=== PATIENT | male | born 1950 | race Caucasian/White ===

== ENCOUNTER → 2020-04-06 | Outpatient (CLI) | payer MEDICARE | LOC: M.LAB 08:35 | PROVIDERS: ATTEND Surgery | DX: Z01.812 Encounter for preprocedural laboratory examination (principal); Z20.828 Contact with and (suspected) exposure to other viral communicable diseases; D17.79 Benign lipomatous neoplasm of other sites ==

== ENCOUNTER → 2020-04-13 | Day surgery (SDC) | payer MEDICARE ==
[~2020-04-13] MED LIST: AMLODIPINE BESY10 MG PO; CARVEDILOL6.25 M1 PO; TAMSULOSIN HCL0.4 MG PO; ULTRAM 50MG TAB50 MG PO; VITAMIN D250 MCG PO
--- NOTE | 2020-04-13 12:49 | EKG ---
[place] [address] ELECTROCARDIOGRAM REPORT Name: MISTI ESQUIVEL Camille Room: [facility]#: [id number] Admission: 04/13/20 Attend Phys: Opal Diallo, Discharge: Date of : 54 Date of Service: 04/13/20 1244 Report #: [id number] THIS REPORT FOR: //name// [facility] Test Date: 2020-04-13 Test Time: 12:44:33 Pat Name: MISTI ESQUIVEL Department: Room: Gender: Contracts Paralegal: : 1950 Requested By: Opal Diallo Order Number: [id number] Hernando MD: Juan J Miller Measurements Intervals [place] Rate: 56 P: -15 CO: 142 QRS: -20 QRSD: 90 T: 18 QT: 431 QTc: 416 Interpretive Statements Sinus rhythm Abnormal R-wave progression, early transition No previous ECG available for comparison Electronically Signed On 04-13-2020 12:49:23 CDT by Juan J Miller [email or web address] <ELECTRONICALLY SIGNED> By: Juan J Miller MD, [facility] 04/13/20 1249 1244 43 Juan J Miller MD, FACC /EPI
[2020-04-13 12:56] LABS: HEMATOCRIT 41.8 % (42.0-52.0); MCHC 33.4 g/dL (28.0-37.0); MCV 83.8 fL (80.0-100.0); MPV 8.4 fl. (7.2-11.1); RBC 4.99 mil/uL (4.50-6.00); RDW-CV 14.9 % (10.5-14.5); WBC 6.2 thou/uL (4.0-11.0)
[2020-04-13 13:01] LABS: CALCIUM 8.8 mg/dL (8.5-10.1)
--- NOTE | 2020-04-13 20:04 | OP ---
[address] [address] OPERATIVE REPORT Name: MISTI ESQUIVEL Room: [facility]#: [id number] Admission: 04/13/20 Attend Phys: Opal Diallo DO Discharge: Date of : 54 Report #: [id number] THIS REPORT FOR: //name// cc: Ifeanyi Moya Michael G DO ~ CC: Opal Moya DO DICTATED BY: Leonard Mojica DO DATE OF SERVICE: 04/13/2020 PREOPERATIVE DIAGNOSIS: Lipoma, left shoulder and lower mid back. POSTOPERATIVE DIAGNOSIS: Lipoma, left shoulder and lower mid back. FINDINGS: Left shoulder lipoma size 6.5 x 4.75 x 0.9 cm, incision was 4 cm in length, of dissection was muscle fascia and lower mid back lipoma 1.5 x 2.5 x 0.5 cm in size. Incision length was 3 cm, depth of dissection was muscle fascia. SURGEON: Opal Diallo DO CO-SURGEON: Leonard Mojica, PGY5 CASHIER AND SALESPERSON: MS Nick3. OPERATION PERFORMED: Excision of left shoulder and mid back lipomas. ANESTHESIA: MAC and local, 0.5% Marcaine. ESTIMATED BLOOD LOSS: 3. SPECIMEN: Left shoulder and mid back lipomas. COMPLICATIONS: None. CONDITION: Stable. DISPOSITION: PACU to home. INDICATIONS: The patient is a 70-year-old male who presented with two symptomatic masses on his back. He was interested in excision due to the pain that they were causing. He was informed of the risks and benefits of the mass excision with risks including but not limited to bleeding, infection. He [address] [address] OPERATIVE REPORT Name: MISTI ESQUIVEL Room: [facility]#: [id number] Admission: 04/13/20 Attend Phys: Opal Diallo DO Discharge: Date of : 54 Report #: [id number] understood these risks and decided to proceed with surgery. DESCRIPTION OF PROCEDURE: After informed consent was obtained, the patient was brought to the operating room and placed in the supine position. He was repositioned with the barakat bag into a right lateral recumbent position. All pressure points were padded. Monitored anesthesia care was provided. A timeout was performed. The patient was prepped and draped in usual sterile fashion. A 0.5% Marcaine was injected at the left shoulder mass and the lower mid back mass. The lower mid back mass was excised first. A vertical midline 3 cm incision was made with a #15 blade. Dissection was carried through the deep dermis using cautery. Once the fatty tissue was identified, there was no clearly encapsulated fatty tissue, but there was some distinct grayish fat that was palpably different than the surrounding tissue. This was excised circumferentially using cautery. Once completely detached, it was handed off as specimen measured 1.5 x 2.5 x 0.5 cm. The remainder of the cavity was inspected and hemostatic. There was no palpable additional masses in the cavity. It was closed in layered fashion using 3-0 Vicryl, 4-0 Monocryl. Attention was then turned towards the left shoulder lipoma, which was previously anesthetized with 0.5% Marcaine. A 4 cm incision was made with a #15 blade. Dissection was carried through the deep dermis using cautery. There was a clearly encapsulated lipoma that was encountered. This was circumferentially bluntly dissected free from the surrounding tissue. The stalk was transected using cautery. A small additional finger at the stalk of the lipoma was excised using blunt dissection and cautery. The final specimen size of the shoulder mass was 6.5 x 4.75 x 0.9 cm. Depth of dissection of both were muscle fascia. Cautery was used for hemostasis. This wound was closed in layered fashion using 3-0 Vicryl, 4-0 Monocryl. Both incisions were dressed with Dermabond and an overlying pressure dressing with 4 x 4's, and tape. The patient was emerged from anesthesia. All counts were correct. He was transferred to the PACU in stable condition. <ELECTRONICALLY SIGNED> By: Opal Diallo DO 04/13/202003 1532 1552Chrsimone Diallo DO /nt
--- NOTE | 2020-04-18 10:07 | PATH ---
[address] [address] PATHOLOGY RPT PROCEDURE Name: TU MORENO Room: [facility]#: [id number] Admission: 04/13/20 Date of : 54 Discharge: Report #: [id number] Path Case #: [id number] [facility] Accession Number: [id number] . 01 Material submitted: . PART A: shoulder - LIPOMA LEFT SHOULDER. Modifiers: left PART B: back - LIPOMA MID BACK. Modifiers: mid . 02 Diagnosis: A. Lipoma left shoulder: - Lipoma. . B. Lipoma mid back: - Lipoma. (BLAKE:pit 04/17/2020) QTP 04/17/2020 1704 Local . 02 Electronically signed: . Bairon Mcgee MD, Pathologist NPI- [id number] . 01 Gross description: . A. Received in formalin labeled "Tu Moreno, lipoma left shoulder" is a uriostegui-yellow lobulated soft tissue mass measuring 4.9 x 4.8 x 2.3 cm. The external surface is inked black. The specimen is sectioned to reveal a yellow-uriostegui homogeneous cut surface without hemorrhage or necrosis. Mortgage Broker sections are submitted in cassettes A1-A3. . B. Received in formalin labeled "Tu Moreno, lipoma mid back" is a uriostegui-yellow lobulated soft tissue mass measuring 3.1 x 2.0 x 0.8 cm. The external surface is inked black. The specimen is sectioned to reveal yellow-uriostegui homogeneous cut surface without hemorrhage or necrosis. Mortgage Broker sections are submitted in cassettes B1-B2. ([facility]; 04/15/2020) [facility] 04/15/2020 1127 Local . 02 Pathologist provided ICD-10: D17.79 . 02 CPT . 921546, 465909 Specimen Comment: A courtesy copy of this report has been sent to [phone] Specimen Comment: Report sent to DR BLOOM Performed at: [address] [facility] [id number] MD Edmund Gallo MD Phone: [phone] Performed at: 02 [place] [address] PATHOLOGY RPT PROCEDURE Name: TU MORENO Room: [facility]#: [id number] Admission: 04/13/20 Date of : 54 Discharge: Report #: [id number] Path Case #: [id number] [facility] [address] [place] [id number] MD Bairon Mcgee MD Phone: [phone]
== END | disposition home or self-care (01) ==
LOC: M.SUR 12:11
PROVIDERS: ATTEND Surgery
DX: D17.79 Benign lipomatous neoplasm of other sites (principal); D17.1 Benign lipomatous neoplasm of skin and subcutaneous tissue of trunk; I10 Essential (primary) hypertension; N40.0 Benign prostatic hyperplasia without lower urinary tract symptoms; Z79.899 Other long term (current) drug therapy; Z88.8 Allergy status to other drugs, medicaments and biological substances